=== PATIENT | male | born 1965 | race African-American/Black ===

== ENCOUNTER 2017-02-17 09:32 | Emergency (ER) | payer SELFPAY ==
[~2017-02-17 09:32] MED LIST: NAPROSYN500 M1 PO; NO HOME MEDICATION XX; NORCO 10-325 T1 EACH PO
[2017-02-17 11:24] LABS: BASO % 0.8 % (0-2); BASO ABSOLUTE COUNT 0.1 tho/cmm (0.0-0.2); EOS % 5.3 % (0-7); EOSINOPHIL ABSOLUTE COUNT 0.4 tho/cmm (0.0-0.7); HCT-HEMATOCRIT 43.7 % (36.0-53.5); HGB-HEMOGLOBIN 14.9 gm/dl (13.5-17.0); IMMATURE GRANULOCYTES ABSOLUTE 0.03 tho/cmm (0-0.03); IMMATURE GRANULOCYTES PERCENT 0.4 % (0-0.3); LYMPH % 28.6 % (20-45); LYMPH ABSOLUTE COUNT 2.4 tho/cmm (0.8-4.5); MCH (MEAN CORPUSCULAR HGB) 30.5 pg (28.0-32.0); MCHC MEAN CORPUSCULAR HGB CONC 34.1 % (32.0-36.0); MCV (MEAN CELL VOLUME) 89.5 fl (82.0-96.0); MEAN PLATELET VOLUME 8.1 cmc (9.4-12.4); MONO % 13.3 % (0-12); MONOCYTE ABSOLUTE COUNT 1.1 tho/cmm (0.0-1.2); NEUTROPHIL ABSOLUTE COUNT 4.3 tho/cmm (1.6-8.0); NEUTROPHIL-AUTOMATED 4.3 tho/cmm (1.6-8.0); NEUTROPHILS % 51.6 % (40-80); PLATELET COUNT 333 tho/cmm (150-450); RED BLOOD COUNT 4.88 mil/cmm (4.40-5.70); RED CELL DISTRIBUTION WIDTH 12.6 % (12.4-16.4); WHITE BLOOD COUNT 8.3 tho/cmm (4.0-10.0)
[2017-02-17 11:34] LABS: ANION GAP 12 mmol/L (0-20); BLOOD UREA NITROGEN 13 mg/dl (6-24); CALCIUM 9.1 mg/dl (8.5-10.5); CARBON DIOXIDE-VENOUS 29 mmol/L (22-32); CHLORIDE 104 mmol/l (96-110); CREATININE 1.61 mg/dl (0.60-1.30); GLUCOSE 107 mg/dL (70-110); POTASSIUM 4.8 mmol/L (3.7-5.1); SODIUM 140 mmol/L (135-145); eGFR VALUE FOR BLACK 57 mL/Min
[2017-02-17] MEDS ORDERED: TRIAMCINOLONE A15 G2 TP (11:50)
[2017-02-17] MEDS ORDERED: KEFLEX500 M4 PO (11:50)
== END 2017-02-17 12:23 ==
LOC: EDMED 09:32
PROVIDERS: Physician Assistant
DX: L30.9 Dermatitis, unspecified (principal); B96.89 Other specified bacterial agents as the cause of diseases classified elsewhere; R79.89 Other specified abnormal findings of blood chemistry; J45.909 Unspecified asthma, uncomplicated